=== PATIENT | male | born 1935 | race Caucasian/White ===

== ENCOUNTER 2020-03-27 14:39 | Inpatient (IN) ==
[2020-03-27] MEDS ORDERED: Naloxone 0.4 MG/ML INJ IVP PRN ×2 (17:20→17:25)
[2020-03-27] MEDS ORDERED: *HR* Promethazine 25 MG/ML VIAL IVP PRN (17:20)
[2020-03-27] MEDS: 0.9 % Sodium Chloride 1,000 ML IVC SCH (17:39)
[2020-03-27] MEDS ORDERED: Perflutren Lipid Microsphere 1.3 ML in 0.9 % Sodium Chloride 8.7 ML IVP PRN (17:44)
[2020-03-27] MEDS ORDERED: Warfarin perPT PO PRN (18:00)
[2020-03-27] MEDS ORDERED: *HR* Warfarin 5 MG TABLET PO ONE (18:35)
[2020-03-28 08:15] LABS: Basophils % 0.3 %; Eosinophils # 0.3 K/mcL (0.0-0.6); Eosinophils % 3.9 %; Hematocrit 39.6 % (37.5-50.1); Hemoglobin 13.2 g/dL (12.9-16.9); Immature Granulocytes % 0.4 % (0-4); Lymphocytes # 1.9 K/mcL (0.6-4.6); Lymphocytes % 27.5 %; Mean Corpuscular HGB Conc 33.3 g/dL (31.6-35.5); Mean Corpuscular Hemoglobin 30.4 pg (28.0-33.3); Mean Corpuscular Volume 91.2 fL (83.0-100.0); Mean Platelet Volume 9.4 fL (9.4-12.4); Monocytes # 0.6 K/mcL (0.0-1.3); Monocytes % 8.9 %; Neutrophils # 4.1 K/mcL (1.6-8.9); Platelet Count 220 K/mcL (140-400); Red Blood Count 4.34 M/mcL (4.19-5.50); Red Cell Distribution Width 13.3 % (11.5-14.5)
[2020-03-28 08:21] LABS: INR 2.1; Prothrombin Time 23.8 Seconds (9.4-12.1)
[2020-03-28 08:35] LABS: BUN/Creatinine Ratio 23 (6-26); Blood Urea Nitrogen 24 mg/dL (8-23); Carbon Dioxide 25 mEq/L (23-29); Chloride 106 mEq/L (98-107); Chol/HDL Ratio 4.8 (0-4.9); Cholesterol 164 mg/dL (< 200); Glucose 108 mg/dL (70-105); HDL Cholesterol 34 mg/dL (40-59); LDL Cholesterol,Calculated 96 mg/dL (< 100); Magnesium 1.7 mg/dL (1.6-2.6); Osmolality,Calculated 291 (280-300); Phosphorous 2.6 mg/dL (2.7-4.5); Sodium 138 mEq/L (136-145); Triglycerides 171 mg/dL (< 150); eGFR For African Americans > 60 (> 60); eGFR For Non-African Americans > 60 (> 60)
[2020-03-28 09:00] LABS: Folate 11.4 ng/mL (3.0-16.0)
[2020-03-28] MEDS: 0.9 % Sodium Chloride 1,000 ML IVC SCH (11:42)
[2020-03-28] MEDS ORDERED: *HR* Warfarin 2.5 MG TABLET PO ONE (18:00)
[2020-03-29 14:16] LABS: Prothrombin Time 22.3 Seconds (9.4-12.1)
[2020-03-29] MEDS ORDERED: *HR* Warfarin 5 MG TABLET PO ONE (18:00)
[2020-03-30 04:27] LABS: INR 2.1; Prothrombin Time 23.8 Seconds (9.4-12.1)
[2020-03-30 07:41] VITALS: BP 159/74
[2020-03-30] MEDS ORDERED: *HR* Warfarin 5 MG TABLET PO ONE (18:00)
== END 2020-03-30 15:27 | disposition home or self-care (01) | DRG 69 ==
LOC: 3BNU → SUATTDRO 17:10
PROVIDERS: ADMIT Family Medicine; ATTEND Internal Medicine

== ENCOUNTER 2022-05-05 16:24 | Inpatient (IN) ==
[2022-05-05] MEDS ORDERED: Naloxone 0.4 MG/ML INJ IVP PRN (19:21)
[2022-05-05] MEDS ORDERED: Melatonin 3 MG TABLET PO PRN (19:21)
[2022-05-05] MEDS ORDERED: Ondansetron 4 MG/2 ML VIAL IVP PRN (19:21)
[2022-05-05 20:31] LABS: Hematocrit 24.1 % (37.5-50.1); Hemoglobin 7.2 g/dL (12.9-16.9)
[2022-05-05 20:49] LABS: % Iron Saturation 2 % (20-55); Iron 10 mcg/dL (65-175); Transferrin 334 mg/dL (203-362)
[2022-05-05 20:59] LABS: Activated Partial Thrombo Time 39.4 Seconds (26.0-36.0)
[2022-05-05 21:02] LABS: INR 4.8; Prothrombin Time 53.3 Seconds (9.4-12.1)
[2022-05-05] MEDS ORDERED: *HR* Phytonadione 5 MG TABLET PO ONE (21:05)
[2022-05-05] MEDS: Pantoprazole 40 MG VIAL IVP SCH (21:35)
[2022-05-05 21:40] LABS: Ferritin < 8 ng/mL (20-250)
[2022-05-06] MEDS ORDERED: 0.9 % Sodium Chloride 250 ML ONE (00:28)
[2022-05-06] MEDS ORDERED: Cyanocobalamin (B-12) 1,000 MCG/ML VIAL SQ SCH (04:36)
[2022-05-06] MEDS ORDERED: D5% in Water 1,000 ML IVC PRN (04:39)
[2022-05-06] MEDS ORDERED: *HR* Dextrose 50 % in Water (Syg) 50 ML SYRINGE IVP PRN (04:39)
[2022-05-06] MEDS ORDERED: Dextrose Gel 15 GM/37.5 ML TUBE PO PRN ×2 (04:39)
[2022-05-06 05:21] LABS: Basophils % 0.3 %; Eosinophils # 0.4 K/mcL (0.0-0.6); Eosinophils % 4.6 %; Hematocrit 23.6 % (37.5-50.1); Hemoglobin 7.1 g/dL (12.9-16.9); Immature Granulocytes % 0.4 % (0-4); Lymphocytes # 1.4 K/mcL (0.6-4.6); Lymphocytes % 17.8 %; Mean Corpuscular HGB Conc 30.1 g/dL (31.6-35.5); Mean Corpuscular Hemoglobin 22.3 pg (28.0-33.3); Mean Corpuscular Volume 74.2 fL (83.0-100.0); Mean Platelet Volume 8.3 fL (9.4-12.4); Monocytes # 0.9 K/mcL (0.0-1.3); Monocytes % 11.5 %; Neutrophils # 5.2 K/mcL (1.6-8.9); Platelet Count 397 K/mcL (140-400); Red Blood Count 3.18 M/mcL (4.19-5.50); Red Cell Distribution Width 16.2 % (11.5-14.5); Segmented Neutrophils % 65.4 %
[2022-05-06 05:26] LABS: INR 4.3
[2022-05-06] MEDS: Pantoprazole 40 MG VIAL IVP SCH ×2 (06:08→18:30)
[2022-05-06] MEDS: Cyanocobalamin (B-12) 1,000 MCG/ML VIAL SQ SCH (06:09)
[2022-05-06 06:32] LABS: Albumin 3.2 g/dL (3.5-5.7); Albumin/Globulin Ratio 1.1 (1.1-2.2); Bilirubin,Total 0.6 mg/dL (0.3-1.0); Calcium 8.7 mg/dL (8.6-10.3); Globulin 2.8 g/dL (2.4-3.5); Magnesium 1.7 mg/dL (1.6-2.6); Phosphorous 3.4 mg/dL (2.7-4.5); Potassium 4.3 mEq/L (3.5-5.1)
[2022-05-06] MEDS ORDERED: Iron Sucrose Complex 400 MG in 0.9 % Sodium Chloride 250 ML IVPB ONE (08:04)
[2022-05-06 11:20] LABS: Hematocrit 25.9 % (37.5-50.1); Hemoglobin 7.9 g/dL (12.9-16.9)
[2022-05-06 17:23] LABS: Hematocrit 25.5 % (37.5-50.1); Hemoglobin 7.6 g/dL (12.9-16.9)
[2022-05-06 17:30] LABS: INR 2.9; Prothrombin Time 32.6 Seconds (9.4-12.1)
[2022-05-06] MEDS ORDERED: Morphine Sulfate 2 MG/ML SYRINGE IVP ONE (21:55)
[2022-05-07] MEDS: Pantoprazole 40 MG VIAL IVP SCH ×2 (05:44→18:49)
[2022-05-07 05:55] LABS: Basophils % 0.3 %; Eosinophils # 0.3 K/mcL (0.0-0.6); Eosinophils % 3.5 %; Hematocrit 24.2 % (37.5-50.1); Hemoglobin 7.3 g/dL (12.9-16.9); Immature Granulocytes % 0.8 % (0-4); Lymphocytes # 1.5 K/mcL (0.6-4.6); Lymphocytes % 16.6 %; Mean Corpuscular HGB Conc 30.2 g/dL (31.6-35.5); Mean Corpuscular Hemoglobin 22.3 pg (28.0-33.3); Mean Platelet Volume 8.3 fL (9.4-12.4); Neutrophils # 6.1 K/mcL (1.6-8.9); Platelet Count 390 K/mcL (140-400); Red Blood Count 3.27 M/mcL (4.19-5.50); Red Cell Distribution Width 16.2 % (11.5-14.5); Segmented Neutrophils % 67.8 %
[2022-05-07 06:15] LABS: Calcium 8.8 mg/dL (8.6-10.3); Potassium 4.5 mEq/L (3.5-5.1)
[2022-05-07] MEDS ORDERED: Iron Sucrose Complex 400 MG in 0.9 % Sodium Chloride 250 ML IVPB ONE (09:00)
[2022-05-07] MEDS: Cyanocobalamin (B-12) 1,000 MCG/ML VIAL SQ SCH (10:03)
[2022-05-07] MEDS ORDERED: *HR* Propofol 200 MG/20 ML VIAL IVP ONE (11:45)
[2022-05-07] MEDS ORDERED: Lidocaine -MPF 2% 2 ML VIAL ONE ×2 (11:45)
[2022-05-07] MEDS: Gabapentin 100 MG CAPSULE PO SCH (20:06)
[2022-05-08] MEDS: Pantoprazole 40 MG VIAL IVP SCH (05:58)
[2022-05-08 09:26] LABS: Basophils % 0.4 %; Eosinophils # 0.5 K/mcL (0.0-0.6); Eosinophils % 4.6 %; Hematocrit 25.6 % (37.5-50.1); Hemoglobin 7.7 g/dL (12.9-16.9); Immature Granulocytes % 1.2 % (0-4); Lymphocytes # 1.3 K/mcL (0.6-4.6); Lymphocytes % 12.2 %; Mean Corpuscular HGB Conc 30.1 g/dL (31.6-35.5); Mean Corpuscular Hemoglobin 22.6 pg (28.0-33.3); Mean Corpuscular Volume 75.1 fL (83.0-100.0); Mean Platelet Volume 8.5 fL (9.4-12.4); Monocytes % 8.9 %; Neutrophils # 7.9 K/mcL (1.6-8.9); Nucleated Red Blood Cells 0.4 /100 WBC (0); Platelet Count 432 K/mcL (140-400); Red Blood Count 3.41 M/mcL (4.19-5.50); Red Cell Distribution Width 16.6 % (11.5-14.5); Segmented Neutrophils % 72.7 %; White Blood Count 10.8 K/mcL (4.3-11.1)
[2022-05-08 09:47] LABS: Calcium 8.9 mg/dL (8.6-10.3); Magnesium 1.7 mg/dL (1.6-2.6); Potassium 4.2 mEq/L (3.5-5.1)
[2022-05-08 09:59] LABS: Thyroid Stimulating Hormone 3.215 mcIU/mL (0.340-5.600)
[2022-05-08] MEDS: lisinopriL 10 MG TABLET PO SCH (10:06)
[2022-05-08] MEDS: Cyanocobalamin (B-12) 1,000 MCG/ML VIAL SQ SCH (10:06)
[2022-05-08] MEDS: Gabapentin 100 MG CAPSULE PO SCH ×2 (10:06→20:09)
[2022-05-08] MEDS: 0.9 % Sodium Chloride 1,000 ML IVC SCH (17:19)
[2022-05-09 03:18] LABS: Hematocrit 23.5 % (37.5-50.1)
[2022-05-09 03:27] LABS: INR 1.4; Prothrombin Time 16.1 Seconds (9.4-12.1)
[2022-05-09] MEDS: 0.9 % Sodium Chloride 1,000 ML IVC SCH (07:32)
[2022-05-09] MEDS: Gabapentin 100 MG CAPSULE PO SCH ×2 (07:33→20:55)
[2022-05-09] MEDS: Cyanocobalamin (B-12) 1,000 MCG/ML VIAL SQ SCH (07:33)
[2022-05-09] MEDS: lisinopriL 10 MG TABLET PO SCH (07:33)
[2022-05-09 11:45] LABS: Hematocrit 25.6 % (37.5-50.1); Hemoglobin 7.5 g/dL (12.9-16.9)
[2022-05-10 03:16] LABS: Hematocrit 23.4 % (37.5-50.1); Hemoglobin 7.1 g/dL (12.9-16.9)
[2022-05-10 08:18] VITALS: BP 184/65; PULSE 95; TEMP 97.9; O2SAT 96
[2022-05-10] MEDS: Gabapentin 100 MG CAPSULE PO SCH (08:21)
[2022-05-10] MEDS: Cyanocobalamin (B-12) 1,000 MCG/ML VIAL SQ SCH (08:22)
[2022-05-10] MEDS: lisinopriL 10 MG TABLET PO SCH (08:22)
[2022-05-13 12:40] LABS: Prothrombin G20210A Specimen WHOLE BLOOD
[2022-05-13 19:01] LABS: FACV Specimen WHOLE BLOOD
[2022-05-14 12:45] LABS: Fac V Leiden R506Q Mut Result NEGATIVE
== END 2022-05-10 11:54 | disposition home or self-care (01) | DRG 811 ==
LOC: 3ANU → SUATTDRO 18:32
PROVIDERS: ADMIT Internal Medicine; ATTEND Family Medicine